=== PATIENT | male | born 1960 | race Caucasian/White ===

== ENCOUNTER → 2020-12-26 09:55 | Outpatient (CLI) | payer OTHER, SELFPAY ==
--- NOTE | 2020-12-26 | DI.MRI.S_ITS ---
PROCEDURE: MR CERVICAL SPINE WO CON INDICATIONS: Spinal stenosis, cervical region TECHNIQUE: Noncontrast sagittal T1 spin echo and T2 fast spin echo, sagittal STIR, foraminal oblique sagittal T2 fast spin echo, and axial gradient echo or T2 fast spin echo through the cervical spine. COMPARISON: None. FINDINGS: Image quality: Excellent. Alignment and Curvature: Straightening of the normal lordotic curvature. Bone Marrow: Postsurgical changes related to C5-C7 ACDF. No evidence of acute fracture. Spinal Cord: Visualized spinal cord has normal size and signal. No cerebellar tonsillar herniation. Paraspinous Soft Tissues: No paravertebral masses. Prevertebral soft tissues are normal in thickness. C2-C3: Normal appearance. C3-C4: Normal appearance. C4-C5: No canal stenosis. Moderate right foraminal narrowing with slight nerve root compression. Mild left foraminal narrowing with borderline nerve root compression. C5-C6: No canal stenosis. Moderate right foraminal narrowing with slight nerve root compression. Mild to moderate left foraminal stenosis. C6-C7: No canal stenosis. No foraminal narrowing. C7-T1: No canal or right foraminal stenosis. No left foraminal narrowing. IMPRESSION: Postsurgical and spondylitic changes as above. Straightening of the normal lordotic curvature. No high-grade canal stenosis. Diffuse bilateral foraminal narrowing as detailed above by spinal level. Dictated by: Yoel Leija M.D. on 12/26/2020 at 13:26 Approved by: Yoel Leija M.D. on 12/26/2020 at 13:31
== END ==
PROVIDERS: PCP Internal Medicine; Referring Provider Neurological Surgery; Visit Provider Neurological Surgery
DX: M48.02 Spinal stenosis, cervical region (principal); Z98.1 Arthrodesis status
CPT/HCPCS: 72141

== ENCOUNTER → 2021-01-01 11:44 | Outpatient (CLI) | payer OTHER, SELFPAY ==
--- NOTE | 2021-01-01 | DI.RAD.S_ITS ---
PROCEDURE: XR LUMBAR SPINE 2-3V INDICATIONS: Spinal stenosis, cervical region TECHNIQUE: 2 views of the lumbar spine were acquired. COMPARISON: None. FINDINGS: Bones: No acute fracture. Multilevel degenerative endplate sclerosis and spurring. Diffuse facet arthropathy. Diffuse mild narrowing of the lumbar disc spaces. Soft tissues: Overlying bowel gas pattern is normal. No suspicious soft tissue calcifications. IMPRESSION: Mild diffuse lumbar spondylosis and facet arthropathy. Dictated by: Yoel Leija M.D. on 01/01/2021 at 14:12 Approved by: Yoel Leija M.D. on 01/01/2021 at 14:13
== END ==
PROVIDERS: PCP Internal Medicine; Referring Provider Neurological Surgery; Visit Provider Neurological Surgery
DX: M47.816 Spondylosis without myelopathy or radiculopathy, lumbar region (principal); G56.03 Carpal tunnel syndrome, bilateral upper limbs; M48.02 Spinal stenosis, cervical region
CPT/HCPCS: 72100

== ENCOUNTER 2024-11-30 09:22 | Day surgery (SDC) | payer OTHER, SELFPAY ==
--- NOTE | 2024-11-30 | PATH_ITS ---
[facility] Accession Number: [id number] No. of containers..02 Tissue . 01 Material submitted: . PART A: colon - COLON, DESCENDING POLYP PART B: rectum - RECTAL POLYPS . 01 Diagnosis: A. DESCENDING COLON POLYP: Tubular adenoma. . B. RECTAL POLYPS: Tubular adenoma and hyperplastic polyps. MRV 12/04/2024 1343 Local . 01 Electronically signed: . Brando Rodrigues MD, PhD, Pathologist NPI- [id number] . 01 Gross description: . A. Received in formalin with two identifiers and descending colon, is a single esqueda soft tissue fragment, 0.8 cm in greatest dimension, submitted in A1. B. Received in formalin with two identifiers and rectal polyps, are multiple esqueda soft tissue fragments aggregating to 0.6 x 0.5 x 0.2 cm. Filtered and submitted in B1. ([id number]) /MRV 12/04/2024 1342 Local . 01 Pathologist provided ICD-10: D12.4, D12.8 . 01 CPT . 473651, 520251 Specimen Comment: A courtesy copy of this report has been sent to [phone] Performed at: [address] [facility] [address], [place], [place] [id number] MD Callum Del Castillo MD Phone: [phone]
[2024-11-30 10:15] VITALS: BP 149/86; PULSE 70; RESP 15; TEMP 36.3; O2SAT 98
[2024-11-30] MEDS: LACTATED RINGERS 1,000 ML 42 ML IV (10:23)
--- NOTE | 2024-11-30 11:00 | P.HP_ITS ---
History of Present Illness History of Present Illness Date Patient Seen: 11/30/24 Time Patient Seen: 11:00 Chief complaint: SDC Narrative: Jeffrey is a 64-year-old man here for a colonoscopy. He had a colonoscopy about 6 years ago in [place] with findings of a few small polyps. He was told they were ?precancerous?. No family history of colon cancer. PFSH Social History Smoking Status: Former smoker alcohol intake: current Meds Home Medications and Allergies Home Medications Medication Instructions Recorded Confirmed Type peg 3350-electrolytes 236 240 ml PO Q10M #4,000 mL 10/30/24 Rx gram-22.74 gram-6.74 gram-5.86 gram solution (Golytely) alprazolam 0.5 mg tablet (Xanax) 0.5 mg PO ONCE #1 tab 11/20/24 11/30/24 Rx escitalopram oxalate 10 mg tablet 10 mg PO DAILY 11/30/24 11/30/24 History losartan 100 mg tablet 100 mg PO DAILY 11/30/24 11/30/24 History tamsulosin 0.4 mg capsule 0.4 mg PO DAILY 11/30/24 11/30/24 History Allergies Allergy/AdvReac Type Severity Reaction Status Date / Time Penicillins Allergy Intermediate Vomiting Verified 11/30/24 10:10 Exam Vital Signs (past 8 hours): - 11/30/24 10:15 Temperature 97.4 F L Pulse Rate 70 Respiratory Rate 15 Blood Pressure 149/86 H Pulse Oximetry 98 Oxygen Delivery Method Room Air Oxygen Delivery Method Room Air Const General: No acute distress Assessment & Plan Assessment and plan (1) History of colon polyps: Status: Acute Plan Colonoscopy Time-Based Coding :: [TOTAL MINUTES] spent with patient and on the chart (including review of chart, obtaining history, exam, reviewing outside data, placing orders, documenting exam and treatment plan, and counseling patient) on [DATE]. [employer] Supervisor [employer] Document charge(s): No
[2024-11-30 11:32] VITALS: BP 110/71; PULSE 58; RESP 14; TEMP 36.6; O2SAT 99
[2024-11-30 11:37] VITALS: BP 115/70; PULSE 65; RESP 15; TEMP 36.6; O2SAT 100
--- NOTE | 2024-11-30 11:37 | PM.OP.COLON ---
Operative Date/Time/Diagnoses Date of procedure: 11/30/24 Time of procedure: 11:37 Pre-op diagnosis: History of polyps Post-op diagnosis: same Procedure & Clinicians Study performed: Colonoscopy Same procedure as scheduled: Yes Surgeon: Phill Hill Procedure Notes Procedure in detail: Surgeon: Phill Hill MD Anesthesia: Jayce De La Cruz D.O. Procedure: The patient was brought to the endoscopy suite, placed in left lateral decubitus position. The patient was connected to monitoring devices. A time-out was performed. Sedation was administered. Once the patient was adequately sedated, a digital rectal exam was performed and was normal. The scope was then inserted and advanced to the cecum where the appendiceal orifice was identified and photographed. The scope was then slowly withdrawn over greater than 6 minutes. The mucosa was thoroughly inspected. There was a 6 mm polyp in the descending colon removed with a cold snare. There were 2 5 mm polyps in the rectum removed with a cold snare and sent together. The scope was retroflexed in the rectum. No other abnormalities were found. The scope was straightened and removed. The patient was awakened and brought to recovery. Scope withdrawal time: 13 minutes Sedation time: 15 minutes EBL: 5 mL Findings: 3 subcentimeter polyps as described above Post-procedure Disposition: PACU
== END 2024-11-30 11:51 | disposition home or self-care (01) ==
PROVIDERS: PCP Internal Medicine; Referring Provider Surgery; Visit Provider Surgery
PROC: 0DJD8ZZ Inspection of Lower Intestinal Tract, Via Natural or Artificial Opening Endoscopic (ICD-10-PCS; CPT 45378; principal; 2024-11-30 10:30)
DX: Z12.11 Encounter for screening for malignant neoplasm of colon (principal); Z86.0100 Personal history of colon polyps, unspecified; D12.4 Benign neoplasm of descending colon; D12.8 Benign neoplasm of rectum
CPT/HCPCS: 45385; J2704